=== PATIENT | female | born 1935 ===

== ENCOUNTER 2016-08-10 10:35 | Outpatient (CLI) | payer MEDICARE ==
--- NOTE | 2016-08-10 16:13 | Ultrasound Report ---
THYROID ULTRASOUND:08/10/16 10:35:00 CLINICAL: Thyroid nodule. FINDINGS: High-resolution ultrasound demonstrated and enlarged multinodular thyroid with too numerous to count solid nodules. The right lobe measures 4.9 x 2.8 x 2.4cm. The largest right lobe nodule is in the lower pole and measures 2.1 x 1.3 x 1.5 cm. The next largest nodule is in the lower pole and has more complex architecture it measures 1.5 x 1.2 x 1.3 cm. A right upper pole nodule measures 1.4 x 0.9 x 1.3 cm. The left lobe measures 5.0 x 2.2 x 2.0 cm. The largest left nodule is in the midportion of the lobe and measures 2.2 x 1.3 x 1.3 cm. A lower pole nodule measures 2.0 x 1.3 x 1.2 cm. A left upper pole nodule measures 1.9 x 1.2 x 1.2 cm. The isthmus measures 6 mm AP thickness. IMPRESSION: Enlarged multinodular thyroid with too numerous to count solid nodules. None of the nodules are particularly suspicious for malignancy. Recommend a followup ultrasound in 6-12 months.
== END 2016-08-10 10:36 | disposition home or self-care (01) ==
LOC: SPVWC 10:35
PROVIDERS: ATTEND Family Medicine
DX: E04.2 Nontoxic multinodular goiter (principal)
CPT/HCPCS: 76536

== ENCOUNTER 2017-08-04 11:31 | Outpatient (CLI) | payer MEDICARE ==
--- NOTE | 2017-08-05 08:49 | Ultrasound Report ---
THYROID ULTRASOUND:08/04/17 11:31:00 CLINICAL: Thyroid nodule. FINDINGS: High-resolution ultrasound demonstrated an enlarged multinodular thyroid. The right lobe measures 4.6 x 3.2 x 1.8cm. The left lobe measures 4.2 x 2.0 x 1.9. The isthmus measures 6 mm. A solid oval mildly heterogeneous isoechoic nodule in the upper pole of the right lobe measures 1.1 x 0.8 x 1.0 cm. A similar solid smooth oval heterogeneous isoechoic nodule in the lower pole of the right lobe measures 2.0 x 1.5 x 1.4 cm. A few additional smaller solid nodules and a right upper pole cyst measuring 6 mm. The left lobe has a heterogeneous echo pattern with less distinct nodules. A single oval solid isoechoic nodule in the midportion measures 1.7 x 1.2 x 1.2 cm. The isthmus measures 6 mm AP thickness. IMPRESSION: Enlarged multinodular thyroid with probably benign solid bilateral nodules. Recommend six month followup ultrasound to reassess nodules for any change in size.
== END 2017-08-04 11:32 | disposition home or self-care (01) ==
LOC: SPVWC 11:31
PROVIDERS: ATTEND Family Medicine
DX: E04.2 Nontoxic multinodular goiter (principal)
CPT/HCPCS: 76536

== ENCOUNTER 2018-01-23 13:34 | Outpatient (CLI) | payer MEDICARE ==
--- NOTE | 2018-01-24 12:07 | Ultrasound Report ---
THYROID ULTRASOUND:01/23/18 13:34:00 CLINICAL: Followup thyroid nodules. FINDINGS: High-resolution ultrasound demonstrated an enlarged multinodular thyroid. The right lobe measures 5.6 x 2.7 x 2.6cm compared to 4.6 x 3.2 x 1.8 cm on the last exam and 4.9 x 2.8 x 2.4 cm on the baseline exam. The left lobe measures 5.2 x 2.2 x 2.3 cm compared to 4.2 x 2.0 x 1.9 cm on the last exam and 4.9 x 2.8 x 2.4 cm on the baseline exam. The isthmus measures 7 mm AP thickness. Too numerous to count bilateral solid nodules. The largest on the right is in the lower pole and measures 2.3 x 1.4 x 1.7 cm compared to 2.1 x 1.3 x 1.5 cm on the baseline exam. Largest on the left is in the mid to lower portion of the lobe and measures 2.2 x 1.6 x 1.4 cm compared to 2.2 x 1.3 x 1.3 cm on the baseline exam. IMPRESSION: An enlarged multinodular thyroid without significant change in overall size and no significant change in size of dominant bilateral nodules.
== END 2018-01-23 13:35 | disposition home or self-care (01) ==
LOC: SPVWC 13:34
PROVIDERS: ATTEND Family Medicine
DX: E04.2 Nontoxic multinodular goiter (principal)
CPT/HCPCS: 76536